=== PATIENT | female | born 1985 | race Caucasian/White ===

== ENCOUNTER 2017-04-04 11:36 | Emergency (ER) | payer OTHER ==
[2017-04-04 12:45] LABS: BASOPHIL 0.3 % (0-2); EOSINOPHIL 0.9 % (0-5); HCT 41.5 % (37.0-47.0); HGB 13.7 g/dl (12.5-16.0); LYMPHOCYTE 30.6 % (15-48); MCH 27.1 pg (25.0-31.0); MONOCYTE 5.3 % (0-12); NEUTROPHIL 62.9 % (41-80); PLT 236 K/uL (150-400); RBC 5.06 M/uL (4.20-5.40); RDW 14.4 % (11.5-14.0); WBC 7.9 K/uL (4.0-10.5)
[2017-04-04 12:47] LABS: BILIRUBIN NEGATIVE (NEGATIVE); BLOOD TRACE-INTACT Ery/uL (NEGATIVE); CLARITY CLEAR (CLEAR); COLOR YELLOW (YELLOW); GLUCOSE (U) NORMAL (NORMAL); KETONE (U) NEGATIVE (NEGATIVE); LEUKOCYTES NEGATIVE Leu/uL (NEGATIVE); NITRITE NEGATIVE (NEGATIVE); PROTEIN NEGATIVE (NEGATIVE); SPECIFIC GRAVITY <=1.005 (1.001-1.030); UROBILINOGEN 0.2 mg/dL (0.2-1.0)
[2017-04-04 12:53] LABS: BACTERIA TRACE; URINARY RBC RARE
[2017-04-04 13:16] LABS: CREATININE 0.7 mg/dL (0.5-1.0); POTASSIUM 4.5 mmol/L (3.5-5.1)
== END 2017-04-04 15:06 | disposition home or self-care (01) ==
LOC: FER 11:36
PROVIDERS: Nurse Practitioner Family
DX: J98.01 Acute bronchospasm (principal); R06.02 Shortness of breath; K21.9 Gastro-esophageal reflux disease without esophagitis; Z90.49 Acquired absence of other specified parts of digestive tract; Z79.899 Other long term (current) drug therapy
CPT/HCPCS: 36415; 71020; 80048; 81001; 85025; 93005; 94640